=== PATIENT | female | born 1955 | race Caucasian/White ===

== ENCOUNTER 2018-11-10 18:55 | Emergency (ER) | payer OTHER ==
[2018-11-10 18:59] VITALS: BP 141/59; PULSE 70; TEMP 99; BMI 28.8
--- NOTE | 2018-11-10 19:16 | PDOC ---
History of Present Illness - General Chief Complaint: Pain Stated Complaint: FALL/LEFT SIDE ANKLE INJURY Time Seen by Provider: 11/10/18 19:10 - History of Present Illness Initial Comments: 11/10/18 19:15 63-year-old female without comorbidities presents for evaluation of left ankle pain. She describes an inversion type injury while coming down the steps today she states she fell down about 4 steps injuring her left ankle she states she did not hit her head she only has left ankle pain. She points to the lateral aspect of her left ankle as the area of her discomfort. Past History - Past Medical History Allergies/Adverse Reactions: Allergies Allergy/AdvReac Type Severity Reaction Status Date / Time No Known Allergies Allergy Verified 11/10/18 18:59 COPD: No Hypercholesterolemia: Yes - Suicide/Smoking/Psychosocial Hx Smoking History: Never smoked Review of Systems - Review of Systems Musculoskeletal: Yes: Joint Pain *Physical Exam - Vital Signs Last Vital Signs Temp Pulse Resp BP Pulse Ox 99.0 F 70 18 141/59 L 99 11/10/18 18:56 11/10/18 18:56 11/10/18 18:56 11/10/18 18:56 11/10/18 18:56 - Physical Exam Comments: 11/10/18 19:15 Left ankle skin color and temperature are normal there swelling about the lateral aspect of the left ankle. There is no tenderness about the knee proximal fibula or along its distal coarse. No tenderness about the medial malleolus navicular base of the fifth metatarsal. There is tenderness over the lateral malleolus and ATFL she is unable to tolerate stability testing she is neurovascularly intact free of any gross sensorimotor deficits. ED Treatment Course - RADIOLOGY Radiology Studies Ordered: Category Date Time Status ANKLE-LEFT [RAD] Stat Radiology 11/10/18 19:14 Ordered Medical Decision Making - Medical Decision Making 11/10/18 19:38 No displaced fracture on x-ray Aircast weight-bear as tolerated with crutches follow-up with orthopedic *DC/Admit/Observation/Transfer Diagnosis at time of Disposition: Ankle sprain - Discharge Dispostion Disposition: HOME Condition at time of disposition: Stable Decision to Admit order: No - Referrals Referrals: Coral Paris [Primary Care Provider] - Beka Muniz DO [Staff Physician] - - Patient Instructions Printed Discharge Instructions: Ankle Sprain, DI for Ankle Sprain Additional Instructions: You may weight-bear as tolerated with the use of crutches and the Aircast. Tylenol and Motrin as directed for pain and swelling. Return to the emergency room for worsening symptoms. Please follow-up with orthopedic surgery in 1-2 days for further evaluation and treatment options. - Post Discharge Activity
== END 2018-11-10 19:40 | disposition home or self-care (01) ==
LOC: JERFT 18:55
PROC: 2W3RX1Z Immobilization of Left Lower Leg using Splint (ICD-10-PCS; principal; 2018-11-10)
DX: S93.402A Sprain of unspecified ligament of left ankle, initial encounter (principal); W10.8XXA Fall (on) (from) other stairs and steps, initial encounter; Y93.89 Activity, other specified; Y92.89 Other specified places as the place of occurrence of the external cause; Y99.8 Other external cause status
CPT/HCPCS: 73610-TC-LT-FY; 99281-25

== ENCOUNTER 2021-06-06 04:46 | Day surgery (SDC) | payer OTHER ==
[2021-06-01 14:48] VITALS: BMI 29.2
[2021-06-06 09:05] VITALS: TEMP 97.8
[2021-06-06 09:50] VITALS: BP 143/71; PULSE 63
== END 2021-06-06 10:30 | disposition home or self-care (01) ==
LOC: JASU-ENDO 04:46
PROVIDERS: ATTEND Internal Medicine Gastroenterology
PROC: 0DBL8ZX Excision of Transverse Colon, Via Natural or Artificial Opening Endoscopic, Diagnostic (ICD-10-PCS; 2021-06-06)
PROC: 0DB98ZX Excision of Duodenum, Via Natural or Artificial Opening Endoscopic, Diagnostic (ICD-10-PCS; 2021-06-06)
PROC: 0DB68ZX Excision of Stomach, Via Natural or Artificial Opening Endoscopic, Diagnostic (ICD-10-PCS; 2021-06-06)
PROC: 0DBN8ZX Excision of Sigmoid Colon, Via Natural or Artificial Opening Endoscopic, Diagnostic (ICD-10-PCS; principal; 2021-06-06 08:00)
DX: Z12.11 Encounter for screening for malignant neoplasm of colon (principal); D12.5 Benign neoplasm of sigmoid colon; D12.3 Benign neoplasm of transverse colon; K57.30 Diverticulosis of large intestine without perforation or abscess without bleeding; K63.89 Other specified diseases of intestine; Z86.010 Personal history of colon polyps; K29.80 Duodenitis without bleeding; K29.50 Unspecified chronic gastritis without bleeding; K92.1 Melena; Z80.0 Family history of malignant neoplasm of digestive organs
CPT/HCPCS: 88305-TC; 88342-TC

== ENCOUNTER 2021-09-09 04:38 | Day surgery (SDC) | payer OTHER ==
[2021-09-07 11:01] VITALS: BMI 30.4
[2021-09-09 09:15] VITALS: TEMP 97.3
[2021-09-09 09:17] VITALS: BP 149/83; PULSE 63
== END 2021-09-09 09:24 | disposition home or self-care (01) ==
LOC: JASU-ENDO 04:38
PROVIDERS: ATTEND Internal Medicine Gastroenterology
PROC: 0DB78ZX Excision of Stomach, Pylorus, Via Natural or Artificial Opening Endoscopic, Diagnostic (ICD-10-PCS; 2021-09-09)
PROC: 0DB98ZX Excision of Duodenum, Via Natural or Artificial Opening Endoscopic, Diagnostic (ICD-10-PCS; principal; 2021-09-09 08:00)
DX: K29.50 Unspecified chronic gastritis without bleeding (principal); K31.89 Other diseases of stomach and duodenum; Z87.19 Personal history of other diseases of the digestive system; Z80.0 Family history of malignant neoplasm of digestive organs
CPT/HCPCS: 88305-TC; 88342-TC